=== PATIENT | female | born 2000 | race Two or more races ===

== ENCOUNTER 2022-05-18 22:00 | Emergency (ER) | payer MEDICAID ==
[~2022-05-18] VITALS: Ht 154.9 cm; Wt 59.0 kg
--- NOTE | 2022-05-19 00:10 | NUR ---
Dr. Abarca at bedside for MSE.
[2022-05-19] MEDS ORDERED: ERYT250T65 PO (00:20)
[2022-05-19] MEDS ORDERED: ERYTHROMYCIN 0.5% OPHT OINT 3.5 GM TUBE ONE (00:29)
[2022-05-19] MEDS ORDERED: ERYTHROMYCIN ETHYLSUCC 200 MG/5 ML SUSPENSION 100ML PO ONE (00:30)
[2022-05-19] MEDS ORDERED: ERYTHROMYCIN 0.5% OPHT OINT 3.5 GM TUBE OP ONE (00:30)
[2022-05-19] MEDS ORDERED: ERYTHROMYCIN ETHYLSUCC 200 MG/5 ML SUSPENSION 100ML ONE (00:31)
--- NOTE | 2022-05-19 00:45 | NUR ---
Patient discharged to home in stable condition. Written and verbal after care instructions given. Patient verbalizes understanding of instructions. Stressed follow up or return to ER for worsening s/s. Patient out of ER with steady gait, no acute signs of distress, VSS, all belongings taken.
[2022-05-19 00:46] VITALS: BP 97/68
== END 2022-05-19 00:46 | disposition home or self-care (01) ==
LOC: ER 22:05
DX: N61.0 Mastitis without abscess (principal)
CPT/HCPCS: A4663